=== PATIENT | male | born 1950 | race Caucasian/White ===

== ENCOUNTER → 2021-02-23 08:26 | Outpatient (BNVA) | payer MEDICARE, SELFPAY | PROVIDERS: PCP Family Medicine; Visit Provider Student in an Organized Health Care Education/Training Program | DX: M48.062 Spinal stenosis, lumbar region with neurogenic claudication (principal); M25.852 Other specified joint disorders, left hip | CPT/HCPCS: 99214 ==

== ENCOUNTER 2021-02-26 01:37 | Outpatient (CLI) | payer MEDICARE, SELFPAY ==
--- NOTE | 2021-02-26 15:05 | DI.RAD_ITS ---
Exam(s) RF JOINT INJECTION FLUORO GUID EXAM: RF JOINT INJECTION FLUORO GUID CLINICAL HISTORY: L HIP INJ UNDER FLUORO, LT HIP PAIN, M25.552 TECHNIQUE: Fluoroscopy provided. Radiologist not present. CONTRAST MATERIAL: None COMPARISON: No exams were available for comparison FINDINGS: Fluoroscopy was provided for Dr. Meneses during therapeutic left hip injection. Submitted image(s) reveal needle placement at the lateral aspect of the femoral head. Contrast injec calos Please refer to the procedure report for complete details. Cumulative Dose: Ka,r=0.82 mGy IMPRESSION: RADIATION DOSE DELIVERED:
[2021-02-26] MEDS: methylPREDNISolone ACETATE 80 MG/ML VIAL IM (15:08)
[2021-02-26] MEDS: Omnipaque 300 MG/ML 10 ML BTL IJ (15:09)
[2021-02-26] MEDS: Bupivacaine 0.5% Pres-Free 10 ML VIAL 5 ML IJ (15:09)
--- NOTE | 2021-02-27 22:31 | W.PROCNOTE ---
Date of service: 02/26/21 Time of Service: 15:14 Procedure Note Date of procedure: 02/26/21 Procedure: Left Hip Injection with Fluoroscopic Guidance Surgeon/Proceduralist/Physician: Shayne Meneses Procedure Diagnosis: Left Hip Femoroacetabular Impingement Procedure Indications: Carlo has had some in the left hip pain. Noninvasive measures have been tried. To serve as both diagnostic and therapeutic, an injection under fluoroscopy was recommended. I had discussed the risks of the procedure and the patient elected to proceed. Procedure Description: Carlo was greeted in the flouroscopy room. The correct side was identified and the consent was reviewed with the patient and signed. The patient was then placed in the supine position on the fluoroscopy table. The LEFT hip was then prepped with Chloraprep. The anterolateral injection starting point was identiifed by bony landmarks and fluoroscopy. The skin and soft tissue in the tract of the injection was anesthetized with 1% Lidocaine. A spinal needle was then inserted deep into the hip joint at the level of the lateral femoral neck under fluoroscopic guidance. A small amount of Omnipaque solution was injected to confirm intraarticular placement. Once confirmed, the hip was injected with 6cc of 0.5% Bupivicaine and 80mg of Depo-Medrol. A bandaid was placed on the injection site.
== END 2021-02-26 01:57 ==
PROVIDERS: PCP Family Medicine; Visit Provider Student in an Organized Health Care Education/Training Program
DX: M25.552 Pain in left hip (principal); M25.852 Other specified joint disorders, left hip
CPT/HCPCS: 20610; 77002; J1040

== ENCOUNTER 2021-06-03 09:51 | Outpatient (CLI) | payer MEDICARE, SELFPAY ==
[2021-06-03 10:12] VITALS: BP 143/88; PULSE 82; RESP 18; TEMP 37; O2SAT 96
[2021-06-03] MEDS: Omnipaque 240 MG/ML 50 ML BTL IJ (11:02)
[2021-06-03] MEDS: Dexamethasone Sod. Phos./Pres-Free 10 MG/ML VIAL IJ (11:02)
--- NOTE | 2021-06-03 11:07 | DI.RAD_ITS ---
Exam(s) XR PAIN CLINIC LUMBAR SP 2V EXAM: XR PAIN CLINIC LUMBAR SP 2V CLINICAL HISTORY: DX: Lumbar Radiculopathy TECHNIQUE: 2D and realtime digital imaging was performed. Radiologist not present. CONTRAST MATERIAL: None. COMPARISON: No exams were available for comparison FINDINGS: Fluoroscopy was provided for pain management therapy. Please refer to procedure report or details. Cumulative dose: Ka,r=10.12 mGy IMPRESSION: RADIATION DOSE DELIVERED:
--- NOTE | 2021-06-03 11:10 | PDOC.PAIN_ITS ---
Pain Clinic Procedure Note Procedure Note Procedure Note: LUMBAR / SACRAL TRANSFORAMINAL INJECTION Carlo Abdi has been referred [facility] for a transforaminal nerve root block and steroid injection. COMMENTS: He was seen at [facility] and [facility] (Jluis Belle MD), and both wanted the left L4 transforaminal [place]. Pre-procedure pain VAS = 3/10. Dx: Lumbosacral radiculopathy Patient was interviewed and the medical record reviewed. There were no medical, pharmacologic, radiographic or other structural contraindications to attempting fluoroscopically guided transforaminal nerve root block and epidural steroid injection. Risks and expected side effects as well as potential benefit of the procedure were reviewed and voiced concerns addressed. The printed consent form was signed and witnessed. Standard time-out procedure was performed. Patient was placed in the prone position on the fluoroscopy table and automated blood pressure cuff and pulse oximeter applied. Fluoroscopy was utilized to identify the left neural foramen between L3 and L4 . A skin mingo was made for the needle insertion site. A Chlorhexadine prep was carried out, and sterile drapes were applied. Local anesthesia was achieved in the skin and subcutaneous tissues. A 22 gauge curved tip spinal needle was then inserted, advanced with fluoroscopic guidance into the neural foramen, confirmed on the lateral view. After negative aspiration, 2 ml of Omnipaque 240 was injected confirming position in A/P and lateral views. This showed a good spread of dye transforaminally into the epidural space. There was no vascular update with contrast injection under continuous fluoroscopy and digital substraction. 15 mg of Dexamethasone was injected, followed by 0.5 ml of 1% Xylocaine flush for the nerve root block, as well. There was no unusual discomfort expressed.The needle was withdrawn. The patient tolerated the procedure well. A Band-Aid was applied. Vital signs were stable throughout the procedure and were as recorded in nursing records. If given, dosages of intravenous drugs for anxiolysis and analgesia were documented in nursing records. Follow up plans and appointments were discussed. Post procedure instruction was given as documented in nursing records and patient was discharged in the care of an identified driver education instructor. COMMENTS:Post-procedure pain VAS = 0/10. Abilio Mederos DO, MPH [facility] CC: Luis Enrique Aguilar
[2021-06-03 11:14] VITALS: BP 159/82; PULSE 83; RESP 16; O2SAT 98
== END 2021-06-03 09:52 | disposition home or self-care (01) ==
LOC: PC 09:53
PROVIDERS: PCP Family Medicine; Visit Provider Preventive Medicine Occupational Medicine
DX: M54.17 Radiculopathy, lumbosacral region (principal); M54.50 Low back pain, unspecified
CPT/HCPCS: 64483; 72100; Q9967